=== PATIENT | female | born 1985 ===

== ENCOUNTER 2018-10-29 04:55 | Emergency (ER) | payer SELFPAY ==
[2018-10-29 05:00] VITALS: BMI 21.9
[2018-10-29 05:12] VITALS: RESP 18; TEMP 97.8; O2SAT 100
--- NOTE | 2018-10-29 05:51 | ED PDOC ---
Arrival/HPI - General Chief Complaint: Chest Pain Time Seen by Provider: 10/29/18 05:25 Historian: Patient - History of Present Illness Narrative History of Present Illness (Text): 10/29/18 05:31 33 year old female, with no significant past medical history, presents to the emergency department complaining of chest pain that alaniz 1 hour prior to arrival. Patient reports she felt a dull-like sensation in the beginning, but after her argument with her spouse, she began having tightness-like sensation. Patient reports pain only to the left shoulder/neck area at present time. She denies any recent travel. Patient denies being on hormone therapy. She states she has been stressed. Patient denies any fever, chills, shortness of breath, nausea, vomiting, diarrhea, urinary symptoms, back pain, neck pain, headache, dizziness, SI/HI, or any other complaints. Time/Duration: Prior to Arrival, 1 hour Symptom Onset: Sudden Activities at Onset: Emotional Upset Context: Home Past Medical History - Provider Review Nursing Documentation Reviewed: Yes - Psychiatric Hx Substance Use: No - Anesthesia Hx Anesthesia: No Hx Anesthesia Reactions: No Hx Malignant Hyperthermia: No Family/Social History - Physician Review Nursing Documentation Reviewed: Yes Family/Social History: No Known Family HX Smoking Status: Never Smoked Hx Alcohol Use: Yes Frequency of alcohol use: Socially Hx Substance Use: No Allergies/Home Meds Allergies/Adverse Reactions: Allergies ciprofloxacin [From Cipro] Allergy (Verified 10/29/18 05:00) RASH Home Medications: Home Meds Medication Instructions Recorded Confirmed No Known Home Med 10/29/18 10/29/18 Review of Systems - Physician Review All systems were reviewed & negative as marked: Yes - Review of Systems Constitutional: absent: Fevers, Other (chills) Eyes: absent: Vision Changes, Photophobia, Eye Pain Respiratory: absent: SOB, Cough, Sputum Cardiovascular: Chest Pain. absent: Palpitations, Edema, Calf Pain, RODRIGUEZ Gastrointestinal: absent: Diarrhea, Nausea, Vomiting Genitourinary Female: absent: Dysuria, Frequency, Hematuria, Other Musculoskeletal: absent: Back Pain, Neck Pain Skin: absent: Rash Neurological: absent: Headache, Dizziness Psychiatric: Other. absent: Anxiety, Depression, Suicidal Ideation (/HI) Physical Exam Vital Signs Reviewed: Yes Vital Signs Temp Pulse Resp BP Pulse Ox 10/29/18 05:09 97.8 F 75 18 102/77 100 Temperature: Afebrile Blood Pressure: Normal Pulse: Regular Respiratory Rate: Normal Appearance: Positive for: Well-Appearing, Non-Toxic, Comfortable Pain Distress: None Mental Status: Positive for: Alert and Oriented X 3 - Systems Exam Head: Present: Atraumatic, Normocephalic Pupils: Present: PERRL Extroacular Muscles: Present: EOMI Conjunctiva: Present: Normal Mouth: Present: Moist Mucous Membranes. No: Dry Neck: Present: Normal Range of Motion. No: Meningeal Signs, MIDLINE TENDERNESS Respiratory/Chest: Present: Clear to Auscultation, Good Air Exchange, Tender to Palpation (chest pain reproducible to palpation). No: Respiratory Distress, Accessory Muscle Use Cardiovascular: Present: Regular Rate and Rhythm, Normal S1, S2. No: Murmurs Abdomen: No: Tenderness, Distention, Peritoneal Signs Back: Present: Normal Inspection. No: CVA Tenderness, Midline Tenderness Upper Extremity: Present: Normal Inspection. No: Cyanosis, Edema Lower Extremity: Present: Normal Inspection. No: Edema Neurological: Present: GCS=15, Speech Normal, Motor Func Grossly Intact Skin: Present: Warm, Dry, Normal Color. No: Rashes Psychiatric: Present: Alert, Oriented x 3, Normal Insight, Normal Concentration Medical Decision Making ED Course and Treatment: 10/29/18 05:31 Impression: 33 year old female presents complaining of chest discomfort that worsened after an argument with her spouse. She denies any SI / HI or depression. No headache, nausea or vomiting. No GI or complaints. chest pain reproducible to palpation Differential Diagnosis included but are not limited to: stress associated chest pain Heart score: RF: 0 Age: 0 Story: 0 EK trop: pending Low pretest well: PERCed out Plan: -- EKG -- Labs -- Chest X-ray -- Tylenol -- POC Urine Test -- Reassess and disposition Progress Notes: 10/29/18 0700 Labs, EKG unremarkable, pending CXR Signed out to Dr. Zelaya pending CXR and disposition. - Scribe Statement The provider has reviewed the documentation as recorded by the Enoch Coffey Provider Scribe Attestation: All medical record entries made by the Luis Aiberica were at my direction and personally dictated by me. I have reviewed the chart and agree that the record accurately reflects my personal performance of the history, physical exam, medical decision making, and the department course for this patient. I have also personally directed, reviewed, and agree with the discharge instructions and disposition. Disposition/Present on Arrival - Present on Arrival Any Indicators Present on Arrival: No History of DVT/PE: No History of Uncontrolled Diabetes: No Urinary Catheter: No History of Decub. Ulcer: No History Surgical Site Infection Following: None - Disposition Have Diagnosis and Disposition been Completed?: Yes Diagnosis: Chest pain Disposition: HOME/ ROUTINE Disposition Time: 07:00 Condition: IMPROVED Discharge Instructions (ExitCare): Chest Pain (DC), Chest Pain (ED) Additional Instructions: MARIA INES VILLEDA, thank you for letting us take care of you today. Your provider was Calin Zelaya DO and you were treated for CHEST PAIN. The emergency medical care you received today was directed at your acute symptoms. If you were prescribed any medication, please fill it and take as directed. It may take several days for your symptoms to resolve. Return to the Emergency Department if your symptoms worsen, do not improve, or if you have any other problems. Please contact your doctor or call one of the physicians/clinics you have been referred to that are listed on the Patient Visit Information form that is included in your discharge packet. Bring any paperwork you were given at discharge with you along with any medications you are taking to your follow up visit. Our treatment cannot replace ongoing medical care by a primary care provider outside of the emergency department. Thank you for allowing the [facility] team to be part of your care today. If you had an X-Ray or CT scan: A Radiologist will review the ED reading if any change in treatment is needed we will contact you. If you had a blood, urine, or wound culture: It will take several days for the results, if any change in treatment is needed we will contact you. If you had an STI test: It will take 48 hours for the results. Please call after 1 week if you have not heard back. Referrals: [facility] [Outside] - Follow up with primary Hannah Lepe MD [Medical Doctor] - Follow up with primary Forms: [employer] (Macedonian), WORK NOTE
[2018-10-29 06:16] LABS: BASO # 0.03 K/mm3 (0.0-2.0); BASO % 0.5 % (0.0-3.0); EOS # 0.1 (0.0-0.7); EOS % 1.3 % (1.5-5.0); HEMOGLOBIN 12.4 g/dL (12.0-16.0); LYMPH # 2.3 (1.2-3.4); LYMPH % 36.6 % (22.0-35.0); MEAN CELL VOLUME 92.5 fl (80.0-105.0); MEAN CORPUSCULAR HEMOGLOBIN 29.2 pg (25.0-35.0); MEAN CORPUSCULAR HGB CONC 31.6 g/dl (31.0-37.0); MEAN PLATELET VOLUME 12.5 fl (7.0-11.0); MONO # 0.6 (0.1-0.6); MONO % 8.9 % (1.0-6.0); RBC 4.25 10^6/uL (3.5-6.1); RED CELL DISTRIBUTION WIDTH 14.1 % (11.5-14.5); WHITE BLOOD COUNT 6.3 10^3/uL (4.5-11.0)
[2018-10-29 06:33] LABS: ALB/GLOB RATIO 1.3 (1.1-1.8); ALT/SGPT 14 U/L (7-56); AST/SGOT 25 U/L (14-36); BLOOD UREA NITROGEN 10 mg/dL (7-21); CALCIUM 8.8 mg/dL (8.4-10.5); GFR NON-AFRICAN AMERICAN > 60
[2018-10-29 06:44] LABS: TROPONIN I < 0.01 ng/mL
[2018-10-29 07:19] VITALS: PULSE 69
[2018-10-29 07:20] VITALS: BP 106/78
--- NOTE | 2018-10-29 07:59 | ED PDOC ---
Physical Exam Vital Signs Temp Pulse Resp BP Pulse Ox 10/29/18 07:18 69 18 106/78 100 10/29/18 05:09 97.8 F 75 18 102/77 100 Medical Decision Making ED Course and Treatment: 10/29/18 07:12 Impression: A 33 year old female who presents to the ED for chest pain. Differential Diagnosis included but are not limited to: Stress/Anxiety vs MSK, low risk for ACS Plan: -- Reassess and disposition Prior Visits: Notes and results from previous visits were reviewed. Progress Notes: 10/29/18 07:12 Patient signed out to me by Dr. Mcintosh. Pending chest X-Ray. 10/29/18 08:11 Chest X-Ray normal, no current symptoms. Chest pain discussed in detail with patient who was given the opportunity to ask any questions. Will be discharged home, will follow up with clinic in 2 days. She was advised to return to the ED if symptoms worsen or any other concern. - Lab Interpretations Lab Results: Troponin I < 0.01 ng/mL 10/29/18 05:55 Total Bilirubin 0.5 mg/dL (0.2-1.3) 10/29/18 05:55 AST 25 U/L (14-36) 10/29/18 05:55 ALT 14 U/L (7-56) 10/29/18 05:55 Alkaline Phosphatase 56 U/L (38-126) 10/29/18 05:55 Total Protein 7.1 g/dL (5.8-8.3) 10/29/18 05:55 Albumin 4.0 g/dL (3.0-4.8) 10/29/18 05:55 Globulin 3.1 gm/dL 10/29/18 05:55 Albumin/Globulin Ratio 1.3 (1.1-1.8) 10/29/18 05:55 - RAD Interpretation Radiology Orders: 10/29/18 05:33 CHEST PORTABLE [RAD] Stat - Medication Orders Current Medication Orders: Discontinued Medications Acetaminophen (Tylenol 325mg Tab) 650 mg PO STAT STA Stop: 10/29/18 05:33 Last Admin: 10/29/18 06:42 Dose: Not Given Non-Admin Reason: Patient Refused - Scribe Statement The provider has reviewed the documentation as recorded by the Enoch Bell Provider Scribe Attestation: All medical record entries made by the Scribe were at my direction and per sonally dictated by me. I have reviewed the chart and agree that the record accurately reflects my personal performance of the history, physical exam, medical decision making, and the department course for this patient. I have also personally directed, reviewed, and agree with the discharge instructions and disposition. Disposition/Present on Arrival - Present on Arrival Any Indicators Present on Arrival: No History of DVT/PE: No History of Uncontrolled Diabetes: No Urinary Catheter: No History of Decub. Ulcer: No History Surgical Site Infection Following: None - Disposition Have Diagnosis and Disposition been Completed?: Yes Diagnosis: Chest pain Disposition: HOME/ ROUTINE Disposition Time: 08:11 Patient Plan: Discharge Condition: IMPROVED Discharge Instructions (ExitCare): Chest Pain (DC), Chest Pain (ED) Additional Instructions: MARIA INES VILLEDA, thank you for letting us take care of you today. Your provider was Calin Zelaya DO and you were treated for CHEST PAIN. The emergency medical care you received today was directed at your acute symptoms. If you were prescribed any medication, please fill it and take as directed. It may take several days for your symptoms to resolve. Return to the Emergency Department if your symptoms worsen, do not improve, or if you have any other problems. Please contact your doctor or call one of the physicians/clinics you have been r eferred to that are listed on the Patient Visit Information form that is included in your discharge packet. Bring any paperwork you were given at discharge with you along with any medications you are taking to your follow up visit. Our treatment cannot replace ongoing medical care by a primary care provider outside of the emergency department. Thank you for allowing the [facility] team to be part of your care today. If you had an X-Ray or CT scan: A Radiologist will review the ED reading if any change in treatment is needed we will contact you. If you had a blood, urine, or wound culture: It will take several days for the results, if any change in treatment is needed we will contact you. If you had an STI test: It will take 48 hours for the results. Please call after 1 week if you have not heard back. Referrals: [facility] [Outside] - Follow up with primary Hannah Lepe MD [Medical Doctor] - Follow up with primary Forms: [facility] ([place]), WORK NOTE
--- NOTE | 2018-10-29 10:09 | CARD ---
APPROVED REPORT Date of service: 10/29/2018 EKG Measurement Heart [id number] [id number] <Conclusion> Normal sinus rhythm Normal ECG
--- NOTE | 2018-10-29 11:19 | RAD ---
Date of service: 10/29/2018 HISTORY: cp COMPARISON: No prior. TECHNIQUE: 1 view obtained. FINDINGS: LUNGS: No active pulmonary disease. PLEURA: No significant pleural effusion identified, no pneumothorax apparent. CARDIOVASCULAR: No aortic atherosclerotic calcification present. Normal cardiac size. No pulmonary vascular congestion. OSSEOUS STRUCTURES: No significant abnormalities. VISUALIZED UPPER ABDOMEN: Normal. OTHER FINDINGS: None. IMPRESSION: No active disease.
== END 2018-10-29 08:09 | disposition home or self-care (01) ==
LOC: ED 04:55
DX: R07.9 Chest pain, unspecified (principal)